=== PATIENT | female | born 1985 | race Two or more races ===

== ENCOUNTER → 2019-10-05 | Outpatient (CLI) | payer OTHER | END | disposition home or self-care (01) | LOC: PRENATAL 08:52 | DX: O35.3XX0 Maternal care for (suspected) damage to fetus from viral disease in mother, not applicable or unspecified (principal); O44.02 Complete placenta previa NOS or without hemorrhage, second trimester; O24.419 Gestational diabetes mellitus in pregnancy, unspecified control ==

== ENCOUNTER → 2019-11-05 | Outpatient (CLI) | payer OTHER ==
[~2019-11-05] MED LIST: METFORMIN HCL500 M3 PO
== END | disposition home or self-care (01) ==
LOC: PRENATAL 08:00
DX: O26.842 Uterine size-date discrepancy, second trimester (principal); O24.410 Gestational diabetes mellitus in pregnancy, diet controlled

== ENCOUNTER → 2019-12-03 | Outpatient (CLI) | payer OTHER | END | disposition home or self-care (01) | LOC: PRENATAL 08:00 | DX: O26.843 Uterine size-date discrepancy, third trimester (principal); O24.410 Gestational diabetes mellitus in pregnancy, diet controlled ==

== ENCOUNTER → 2020-01-09 | Outpatient (CLI) | payer OTHER | END | disposition home or self-care (01) | LOC: PRENATAL 01-01 08:00 | PROVIDERS: ATTEND Obstetrics & Gynecology | DX: O26.843 Uterine size-date discrepancy, third trimester (principal); O36.8131 Decreased fetal movements, third trimester, fetus 1; O24.410 Gestational diabetes mellitus in pregnancy, diet controlled ==

== ENCOUNTER → 2020-02-01 | Outpatient (CLI) | payer OTHER | END | disposition home or self-care (01) | LOC: PRENATAL 09:30 | PROVIDERS: ATTEND Obstetrics & Gynecology | DX: O26.843 Uterine size-date discrepancy, third trimester (principal); O36.8131 Decreased fetal movements, third trimester, fetus 1; O24.410 Gestational diabetes mellitus in pregnancy, diet controlled ==

== ENCOUNTER → 2020-11-20 16:35 | Outpatient (CLI) | payer OTHER | END | disposition home or self-care (01) | LOC: PPH VACUNA 16:35 | DX: Z23 Encounter for immunization (principal) ==

== ENCOUNTER → 2020-12-12 17:12 | Outpatient (CLI) | payer OTHER | END | disposition home or self-care (01) | LOC: PPH VACUNA 17:12 | DX: Z23 Encounter for immunization (principal) ==